=== PATIENT | male | born 2000 | race Caucasian/White ===

== ENCOUNTER 2020-10-20 22:49 | Observation (INO) | payer SELFPAY ==
[~2020-10-20] VITALS: Ht 188 cm; Wt 68.0 kg
[2020-10-21 00:15] LABS: BASOPHILS ABSOLUTE AUTO 0.04 K/mm3 (0.00-0.23); BASOPHILS PERCENT AUTO 0 % (0-2); EOSINOPHILS ABSOLUTE AUTO 0.07 K/mm3 (0.00-0.68); EOSINOPHILS PERCENT AUTO 0 % (0-6); Hematocrit 40.8 % (37.0-53.0); Hemoglobin 13.6 g/dL (13.5-17.5); IMMATURE GRAN ABSOLUTE AUTO 0.07 K/mm3 (0.00-0.10); IMMATURE GRAN PERCENT AUTO 0 % (0-1); LYMPHOCYTES ABSOLUTE AUTO 1.22 K/mm3 (0.84-5.20); LYMPHOCYTES PERCENT AUTO 8 % (21-46); MONOCYTES ABSOLUTE AUTO 1.07 K/mm3 (0.16-1.47); MONOCYTES PERCENT AUTO 7 % (4-13); Mean Corpuscular HGB 30.3 pg (26.0-34.0); Mean Corpuscular HGB Conc 33.3 g/dL (31.5-36.5); Mean Corpuscular Volume 91 fL (80-100); Mean Platelet Volume 11.4 fL (9.1-12.4); NEUTROPHILS ABSOLUTE AUTO 13.49 K/mm3 (1.96-9.15); NEUTROPHILS PERCENT AUTO 85 % (41-73); Platelet Count 200 K/mm3 (150-400); RDW Coefficient Variation 12.5 % (11.7-14.2); RDW Standard Deviation 41.4 fL (35.1-46.3); Red Blood Cell Count 4.49 M/mm3 (4.30-5.90); White Blood Cell Count 15.96 K/mm3 (4.00-11.30)
[2020-10-21 00:33] LABS: Alanine Aminotransfer (ALT/SGP 34 U/L (12-78); Albumin, Blood 3.8 g/dL (3.4-5.0); Alk Phos 62 U/L (50-136); Anion Gap 4 mmol/L (6-16); Aspartate Aminotrans (AST/SGOT 13 U/L (12-37); Bilirubin, Total 0.4 mg/dL (0.1-1.0); Blood Urea Nitrogen 11 mg/dL (8-24); Bun/Creatinine Ratio 13.3 (12.0-20.0); CO2, Blood 32 mmol/L (21-32); Chloride, Blood 102 mmol/L (98-108); Creatinine, Blood 0.83 mg/dL (0.60-1.20); Globulin, Blood 3.8 g/dL (2.2-4.0); Glomerular Filtration Rate >60 (60-); Glucose, Blood 140 mg/dL (70-99); Potassium, Blood 3.5 mmol/L (3.5-5.5); Sodium, Blood 138 mmol/L (136-145); Total Protein, Blood 7.6 g/dL (6.4-8.2)
--- NOTE | 2020-10-21 02:14 | NUR ---
ADMIT ER ADMIT FOR APPENDICITIS. PT ALERT AND ORIENTED. PT DENIES PAIN AT THIS TIME, BUT ABDOMEN IS TENDER TO TOUCH. REPORTS EMESIS IN ER, BUT CURRENTLY DENIES N/V. NPO. IVF INFUSING PER ORDERS. VSS. ORIENTED TO ROOM AND CALL LIGHT.
[2020-10-21 02:44] LABS: SARS-Cov-2 (COVID-19) PCR, MMC NEGATIVE (NEGATIVE)
--- NOTE | 2020-10-21 12:10 | NUR ---
SURGERY PT TRANSFERED TO OR. PT A&O, PT IN PLEASENT MOOD.
--- NOTE | 2020-10-21 12:39 | NUR ---
PT TRANSFERED TO [facility] FROM FLOOR. History, Chart, Medications and Allergies reviewed before start of procedure. Lungs clear T/O to Auscultation. Patient confirms NPO status and agrees with scheduled surgery.
[2020-10-21] MEDS ORDERED: HYDR1TAB94 PO (17:13)
--- NOTE | 2020-10-21 18:28 | NUR ---
DISCHARGE PT A&O X4. PT PROVIDED WRITTEN AND VERBAL DISCHARGE DIRECTION. PT VERBALIZED UNDERSTANDING OF INSTRUCTION. PT TOLERATING ORAL INTAKE. PT VOIDING WELL. PT STURDY W/ AMBULATION. VSS. PT ESCORTED TO [facility] VIA WC, SCRIPT IN HAND. [facility]END PROVIDING TRANSPORT.
== END 2020-10-21 18:30 | disposition home or self-care (01) ==
LOC: ER 22:49 → SURS 22:50 → ER 10-21 01:05 → SURS 10-21 01:05
PROVIDERS: Emergency Medicine; Student in an Organized Health Care Education/Training Program; ADMIT Surgery
PROC: 0DTJ4ZZ Resection of Appendix, Percutaneous Endoscopic Approach (ICD-10-PCS; principal; 2020-10-21 11:45)
DX: K35.33 Acute appendicitis with perforation, localized peritonitis, and gangrene, with abscess (principal); Z20.822 Contact with and (suspected) exposure to COVID-19
CPT/HCPCS: 36415; 74177; 80053; 83690; 85025; 88304; 96365; 96374; 96375; 96376; 99285-25; A9270; G0378; J1100; J1885; J2250; J2405; J2543; J2704; J3010; J7120; Q9967; U0004

== ENCOUNTER 2021-07-09 11:29 | Emergency (ER) | payer OTHER ==
[~2021-07-09] VITALS: Ht 188 cm; Wt 68.0 kg
[~2021-07-09 11:29] MED LIST: HYDR1TAB94 PO
[2021-07-09] MEDS ORDERED: OXAYDO5 M1 PO (15:55)
[2021-07-09] MEDS ORDERED: IBUP800 PO (15:55)
== END 2021-07-09 18:56 | disposition home or self-care (01) ==
LOC: ER 11:29
DX: R07.89 Other chest pain (principal); R06.02 Shortness of breath; F17.220 Nicotine dependence, chewing tobacco, uncomplicated; F17.290 Nicotine dependence, other tobacco product, uncomplicated
CPT/HCPCS: 32551; 71045; 71046; 96374; 99282-25; J1885; J3010

== ENCOUNTER 2021-07-11 11:41 | Emergency (ER) | payer OTHER ==
[~2021-07-11] VITALS: Ht 188 cm; Wt 68.0 kg
[~2021-07-11 11:41] MED LIST changes: +IBUP800 PO; +OXAYDO5 M1 PO
== END 2021-07-11 15:11 | disposition home or self-care (01) ==
LOC: ER 11:41
DX: J93.9 Pneumothorax, unspecified (principal); Z79.899 Other long term (current) drug therapy
CPT/HCPCS: 71045; 71046

== ENCOUNTER 2021-07-13 15:18 | Emergency (ER) | payer OTHER ==
[~2021-07-13] VITALS: Ht 188 cm; Wt 68.0 kg
== END 2021-07-13 16:54 | disposition home or self-care (01) ==
LOC: ER 15:18
DX: J93.9 Pneumothorax, unspecified (principal); F17.220 Nicotine dependence, chewing tobacco, uncomplicated; F17.290 Nicotine dependence, other tobacco product, uncomplicated; Z79.899 Other long term (current) drug therapy
CPT/HCPCS: 71045

== ENCOUNTER 2021-07-14 09:10 | Emergency (ER) | payer OTHER ==
[~2021-07-14] VITALS: Ht 188 cm; Wt 68.0 kg
== END 2021-07-14 11:48 | disposition home or self-care (01) ==
LOC: ER 09:10
DX: J93.9 Pneumothorax, unspecified (principal)
CPT/HCPCS: 71045; 99283-25

== ENCOUNTER 2021-08-03 12:25 | Inpatient (IN) | payer OTHER ==
[~2021-08-03] VITALS: Ht 188 cm; Wt 70.4 kg
[2021-08-03 15:09] LABS: BASOPHILS ABSOLUTE AUTO 0.05 K/mm3 (0.00-0.23); BASOPHILS PERCENT AUTO 1 % (0-2); EOSINOPHILS ABSOLUTE AUTO 0.16 K/mm3 (0.00-0.68); EOSINOPHILS PERCENT AUTO 3 % (0-6); Hematocrit 41.9 % (37.0-53.0); IMMATURE GRAN ABSOLUTE AUTO 0.02 K/mm3 (0.00-0.10); IMMATURE GRAN PERCENT AUTO 0 % (0-1); LYMPHOCYTES ABSOLUTE AUTO 1.62 K/mm3 (0.84-5.20); LYMPHOCYTES PERCENT AUTO 29 % (21-46); MONOCYTES PERCENT AUTO 7 % (4-13); Mean Corpuscular HGB 30.8 pg (26.0-34.0); Mean Corpuscular HGB Conc 33.4 g/dL (31.5-36.5); Mean Corpuscular Volume 92 fL (80-100); Mean Platelet Volume 11.5 fL (9.1-12.4); NEUTROPHILS ABSOLUTE AUTO 3.35 K/mm3 (1.96-9.15); NEUTROPHILS PERCENT AUTO 60 % (41-73); Platelet Count 188 K/mm3 (150-400); RDW Coefficient Variation 12.5 % (11.7-14.2); RDW Standard Deviation 42.5 fL (35.1-46.3); Red Blood Cell Count 4.55 M/mm3 (4.30-5.90)
[2021-08-03 15:24] LABS: Bun/Creatinine Ratio 17.6 (12.0-20.0); Calcium, Blood 9.5 mg/dL (8.5-10.1); Creatinine, Blood 0.8 mg/dL (0.60-1.20); Potassium, Blood 4.1 mmol/L (3.5-5.5)
[2021-08-03] MEDS ORDERED: IBUP800 PO (22:01)
--- NOTE | 2021-08-04 08:07 | NUR ---
SHIFT SUMMARY: KAMINI IS A&OX4. VSS, NO ACUTE EVENTS OVERNIGHT. HE DENIED THE NEED FOR MEDICATION THIS SHIFT AND RESTED INTERMITTENTLY. HE IS TOLERATING PO INTAKE WELL, URINATING WITHOUT DIFFICULTY, PIGTAIL CHEST TUBE TO WALL SUCTION. HE IS LYING IN BED WITH THE CALL LIGHT IN REACH. WILL REPORT TO DAY SHIFT RN.
--- NOTE | 2021-08-04 09:05 | NUR ---
[facility], pt sleeping in bed, call light within place, bed rails up x 2, bed in lowest position 0815-Dr Gutierrez rounding 0830-provded pt with IS and education for use
--- NOTE | 2021-08-04 12:30 | NUR ---
portable chest x-ray jacquelin conducted it pt's room. pt's SO in room.
--- NOTE | 2021-08-04 14:30 | NUR ---
Assisted Dr Gutierrez insert Urasil chest tube bedside using sterile technique, WNL. Pt reports he is able to breath in larger volume with reduced pain and much more ease. Portable chest x-ray performed following procedure.
--- NOTE | 2021-08-04 17:11 | NUR ---
SHIFT SUMMARY: VSS. NO ACUTE CHANGES. PT REPORTS IMPROVED CAPACITY WHEN USING THE INCENTIVE SPIROMETER, LESSENED PAIN, EASIER BREATHING. CHEST TUBE WNL AND IN PLACE. PT TOLERATING PO INTAKE WELL, VOIDING >340 ML THIS SHIFT. PATIENT'S SO VISITED THIS SHIFT.
--- NOTE | 2021-08-05 05:30 | NUR ---
PT VSS T/O NIGHT. SATS >90% ON RA. PT REP LESS SOB SINCE URESIL CT PLACED. CT REMAINS TO WALL SX @ -20 PRESSURE, BUBBLING AND FLUCTUATION NOTED ON A[facility]IUM DRAIN. NO CREPITUS NOTED, LUNGS REMAIN DIM. PT DENIED NEED FOR PAIN MEDS. PT ZENIA REG PO, NON/V, IS VOIDING URINE W/O DIFFICULTY. PLAN FOR REPEAT CXR THIS AM.
--- NOTE | 2021-08-05 11:57 | NUR ---
Pt. is sitting up and welcomes my spiritual care visit. Pt. is pleasant and is aware of his condition. Pt. verbalizes need to better care for himself at point of discharge. Establish rapport and facilitate a life review. Pt. displays evidence of confidence and trust. prayer for Pt. Pt. verbalizes gratitude for the spiritual care visit.
--- NOTE | 2021-08-05 17:39 | NUR ---
SHIFT [facility] NO ACUTE CHANGES THIS SHIFT. URESIL CHEST TUBE REMAINS IN PLACE TO LEFT ANT CHEST, TO DRY SUCTION. PATIENT DENIES SOB/DIFFICULTY BREATHING/CP. ABOUT 10CC SS FLUID IN DRAINAGE CHAMBER. SMALL BUBBLE OCCASIONALY WITH DEEP BREATH AND COUGH. EATING, DRINKING, & VOIDING WELL. PATIENT DENIES PAIN AND PAIN MEDICATION. CALL LIGHT IN REACH, WILL REPORT TO ONCOMING RN.
--- NOTE | 2021-08-06 06:26 | NUR ---
PT APPEARED TO SLEEP FOR MAJORITY OF NIGHT. PT DENIED SOB OR PAIN. CHEST TUBE TO DRY WALL SX. FEW BUBBLES PRESENT W/INSPIRATION AND W/COUGHING. SITE WNL, NO CREPITUS NOTED. PT INDEP IN ROOM. PLAN FOR REPEAT CXR THIS AM.
--- NOTE | 2021-08-06 19:38 | NUR ---
SHIFT SUMMARY NO ACUTE CHANGES THIS SHIFT. PATIENT INDEPENDENT IN ROOM, RESTING IN BED THROUGHOUT DAY. MEDICATED X1 FOR PAIN, PER EMAR. DR BLOOM DICUSSED WITH PATIENT THAT LUNG STILL HAS SMALL LEAK AND WILL TALK WITH A THORACIC SURGEON & MAKE A PLAN MOVING FORAWRD. CHEST TUBE REMAINS TO DRY SUCTION AT THIS TIME. WILL REPORT TO ONCOMING RN.
--- NOTE | 2021-08-07 06:24 | NUR ---
PT DENIED PAIN T/O NIGHT. SATS >90% ON RA. URESIL TO DRY WALL SX, SOME BUBBLING NOTED W/INSPIRATION ADN COUGHING, NO CREPITUS NOTED. PT DENIED SOB. PT INDEP IN ROOM. PLAN FOR REPEAT CXR THIS AM.
--- NOTE | 2021-08-07 14:08 | NUR ---
IMAGING AT BEDSIDE AT THIS TIME
--- NOTE | 2021-08-07 14:54 | NUR ---
FACE SHEET FAXED TO [facility] AT THIS TIME
--- NOTE | 2021-08-07 17:05 | NUR ---
DISCHARGE: REPORT PASSED TO DEVYN RAMIREZ AT [facility] AT ABOUT 1645. TRANSPORT HERE AT 1700, PACKET PRINTED AND SENT WITH TRANSPORT. PT TRANSPORTED WITH CHEST TUBE TO SUCTION. PT FAMILY IS AWARE OF [place]
== END 2021-08-07 17:00 | disposition short-term general hospital (02) | DRG 201 ==
LOC: ER 12:25 → SURS 12:26
PROVIDERS: Emergency Medicine; ADMIT Surgery
PROC: 0W9B30Z Drainage of Left Pleural Cavity with Drainage Device, Percutaneous Approach (ICD-10-PCS; principal; 2021-08-03)
PROC: 0W9B30Z Drainage of Left Pleural Cavity with Drainage Device, Percutaneous Approach (ICD-10-PCS; 2021-08-04)
DX: J93.83 Other pneumothorax (principal); Z90.49 Acquired absence of other specified parts of digestive tract
CPT/HCPCS: 32551; 71045; 71046; 71250; 80048; 85025; 94760; 94762; 96374-59; 99152; 99285-25; 99406; A9270; G0378; J1650; J3010

== ENCOUNTER 2023-07-02 00:09 | Emergency (ER) | payer OTHER ==
[~2023-07-02] VITALS: Ht 188 cm; Wt 63.5 kg
[2023-07-02 00:10] VITALS: BP 140/91
[2023-07-02] MEDS ORDERED: Amoxicillin/Clavulanate K 875 MG Tab PO ONE (00:25)
[2023-07-02] MEDS ORDERED: AMOCLA875 PO (00:29)
[2023-07-02] MEDS ORDERED: Ketorolac Tromethamine 30mg Vial IM ONE (00:30)
== END 2023-07-02 00:40 | disposition home or self-care (01) ==
LOC: ER 00:09
DX: K08.89 Other specified disorders of teeth and supporting structures (principal); F17.290 Nicotine dependence, other tobacco product, uncomplicated
CPT/HCPCS: 64400; 96372-59; 99282-25; A9270; J1885